=== PATIENT | female | born 1985 | race Two or more races ===

== ENCOUNTER 2021-01-10 06:00 | Inpatient (IN) | payer OTHER ==
[~2021-01-10] VITALS: Ht 30.5 cm; Wt 5.0 kg
[~2021-01-10 06:00] MED LIST: FLONASE IH
[2021-01-10] MEDS ORDERED: FLONASE16 GM (16:02)
[2021-01-11] MEDS ORDERED: Tylenol#3 PO (08:53)
== END 2021-01-11 10:57 | disposition home or self-care (01) | DRG 743 ==
LOC: CIR.AMB 06:00 → O/R 12:41 → OB/GYN 12:49 → SURG-SUITE 16:17
PROVIDERS: ADMIT Obstetrics & Gynecology; ATTEND Obstetrics & Gynecology
PROC: 0UT2FZZ Resection of Bilateral Ovaries, Via Natural or Artificial Opening With Percutaneous Endoscopic Assistance (ICD-10-PCS; 2021-01-10)
PROC: 0UT7FZZ Resection of Bilateral Fallopian Tubes, Via Natural or Artificial Opening With Percutaneous Endoscopic Assistance (ICD-10-PCS; 2021-01-10)
PROC: 0UQF3ZZ Repair Cul-de-sac, Percutaneous Approach (ICD-10-PCS; 2021-01-10)
PROC: 0USG8ZZ Reposition Vagina, Via Natural or Artificial Opening Endoscopic (ICD-10-PCS; 2021-01-10)
PROC: 0JQC0ZZ Repair Pelvic Region Subcutaneous Tissue and Fascia, Open Approach (ICD-10-PCS; 2021-01-10)
PROC: 0TJB8ZZ Inspection of Bladder, Via Natural or Artificial Opening Endoscopic (ICD-10-PCS; 2021-01-10)
PROC: 0UT9FZZ Resection of Uterus, Via Natural or Artificial Opening With Percutaneous Endoscopic Assistance (ICD-10-PCS; principal; 2021-01-10 12:00)
DX: D25.1 Intramural leiomyoma of uterus (principal); N81.11 Cystocele, midline; D50.0 Iron deficiency anemia secondary to blood loss (chronic); N94.5 Secondary dysmenorrhea; I10 Essential (primary) hypertension

== ENCOUNTER 2025-07-21 13:42 | Emergency (ER) | payer OTHER ==
[~2025-07-21] VITALS: Ht 154.9 cm; Wt 77.1 kg
[~2025-07-21 13:42] MED LIST changes: +FLONASE16 GM; +Tylenol#3 PO
[2025-07-21] MEDS ORDERED: CLINDAMYCIN PHOSPHATE 150 MG/ML (300mg) IV ONE (16:30)
[2025-07-21] MEDS ORDERED: KETOROLAC TROMETHAMINE 30 MG VIAL IM ONE (16:30)
[2025-07-21] MEDS ORDERED: KETOROLAC TROMETHAMINE 30 MG VIAL ONE ×2 (16:53→17:01)
[2025-07-21] MEDS ORDERED: CLINDAMYCIN PHOSPHATE 150 MG/ML (300mg) ONE (16:53)
== END 2025-07-21 19:20 | disposition home or self-care (01) ==
LOC: ER 13:42
DX: S81.022A Laceration with foreign body, left knee, initial encounter (principal); W18.39XA Other fall on same level, initial encounter; Y93.89 Activity, other specified; Y92.89 Other specified places as the place of occurrence of the external cause

== ENCOUNTER 2025-07-29 08:53 | Emergency (ER) | payer OTHER ==
[~2025-07-29] VITALS: Ht 154.9 cm; Wt 77.1 kg
== END 2025-07-29 10:13 | disposition home or self-care (01) ==
LOC: ER 08:53
DX: Z48.02 Encounter for removal of sutures (principal); Z88.0 Allergy status to penicillin